=== PATIENT | female | born 1975 | race Caucasian/White ===

== ENCOUNTER 2017-12-15 16:41 | Emergency (ER) | payer BC ==
[~2017-12-15] VITALS: Ht 154.9 cm; Wt 178.3 kg
--- OUTSIDE RECORDS SUMMARY | 2017-12-15 16:44 | XMS REPORT | Clinical Summary ---
Author Author [employer] Organization [facility] Address Unknown Phone Unavailable Care Team Providers [employer] Name Role Phone Cyn Rao MD PCP Allergies Active Allergy Reactions Severity Noted Date Comments No Known Drug Allergies 03/11/2016 Current Medications Prescription Sig. Disp. Refills Start End Date Status Date XIIDRA 5 % dropperette 11/02/19 Active 17 buPROPion (WELLBUTRIN) 75 02/16/20 Active MG tablet 17 losartan-hydrochlorothiaz TK 1 T PO QD 3 05/19/20 Active darek (HYZAAR) 50-12.5 mg 17 per tablet ergocalciferol (VITAMIN TK 1 C PO Q WEEK 1 09/21/20 Active D2) 50,000 unit capsule 17 ipratropium (ATROVENT) 09/24/20 Active 0.03 % nasal spray 17 buPROPion (WELLBUTRIN) 09/17/20 04/15/20 Discontin 100 MG tablet 16 17 ued ergocalciferol (VITAMIN 04/10/20 08/02/20 Discontin D2) 50,000 unit capsule 17 17 ued Active Problems Problem Noted Date Low back pain 11/09/2016 Pain in both knees 11/09/2016 Amenorrhea 03/11/2016 Irritable bowel syndrome with diarrhea 03/11/2016 Bariatric surgery status 10/27/2011 Kidney stones 10/18/2008 Anxiety Arthritis GERD (gastroesophageal reflux disease) Depression Headache PCOS (polycystic ovarian syndrome) Hypothyroidism BMI 70 and over, adult Neuromuscular disorder Resolved Problems Problem Noted Date Resolved Date Anemia 09/27/2017 Encounters Date Type Specialty Care Team Description 09/27/2017 Office Visit Family Medicine Omaira Rao, Neuromuscular disorder (Primary Dx); Irritable bowel syndrome with diarrhea; PCOS (polycystic ovarian syndrome); Low back pain, unspecified back pain laterality, unspecified chronicity, with sciatica presence unspecified; Arthritis; Anemia, unspecified type; Other depression; BMI 70 and over, adult 08/03/2017 Telephone [facility] Medicine Earlene Rivers MA Visit for screening mammogram (Primary Dx) 08/02/2017 Office Visit [facility] Omaira Rico Neuromuscular disorder (Primary Dx); Low back pain, unspecified back pain laterality, unspecified chronicity, with sciatica presence unspecified; Pain in both knees, unspecified chronicity; Hypothyroidism, unspecified type; PCOS (polycystic ovarian syndrome); BMI 70 and over, adult; Bariatric surgery status 05/06/2017 Orders Only Internal Medicine Johana Duffy MD 04/22/2017 Telephone [facility] Omaira Rico MD 04/15/2017 Office Visit [facility] Omaira Rico, PCOS ( polycystic ovarian MD syndrome) (Primary Dx); Neuromuscular disorder; Arthritis; Gastroesophageal reflux disease without esophagitis; Low back pain, unspecified back pain laterality, unspecified chronicity, with sciatica presence unspecified 04/02/2017 Orders Only Internal Medicine Johana Duffy MD 03/08/2017 Office Visit [facility] Omaira Rico Neuromuscular disorder (Primary Dx); Low back pain, unspecified back pain laterality, unspecified chronicity, with sciatica presence unspecified; Pain in both knees, unspecified chronicity; Irritable bowel syndrome with diarrhea 01/06/2017 Telephone [facility] Omaira Rico MD 12/23/2016 Orders Only Family Medicine Johana Duffy MD after 12/14/2016 Immunizations Name Dates Previously Given Next Due DTaP 10/18/2007 Influenza (IM) 08/20/2011 Preservative Free Family History Medical History Relation Name Comments Cancer Father Tan Maguire Blood cancer and leukemia d 10/2016 Eric Heart disease Father Tan Maguire Eric Depression Mother Christine Hood Depression Sister Brielle Eric Nath Relation Name Status Comments Father Tan Maguire ANXIETY Eric Mother Christine OSTEOPOROSI Erwin Sister Brielle Eric Nath Social History Tobacco Use Types Packs/Day Years Used Date Never Smoker Smokeless Tobacco: Never Used Alcohol Use Drinks/Week oz/Week Comments No Sex Assigned at Date Recorded Not on file Last Filed Vital Signs Vital Sign Reading Time Taken Blood Pressure 149/87 09/27/2017 2:12 PM [employer] Pulse 95 09/27/2017 2:12 PM [employer] Temperature 36.8 C (98.3 F) 09/27/2017 2:12 PM [employer] Respiratory Rate - - Oxygen Saturation 96% 09/27/2017 2:12 PM [employer] Inhaled Oxygen - - Concentration Weight 179 kg (394 lb) 09/27/2017 2:12 PM [employer] Height 152.4 cm (5') 09/27/2017 2:12 PM [employer] Body Mass Index 76.95 09/27/2017 2:12 PM [employer] Plan of Treatment Date Type Specialty Care Team Description 12/30/2017 Office Visit Family Medicine PurdyOmaira Stein MD [id number] [place] [address] Health Maintenance Due Date Last Done Comments PAP SMEAR 1996 INFLUENZA VACCINE 05/18/2017 08/20/2011 Results * Obtain medical records (05/06/2017) Only the most recent of 2 results within the time period is included. * Consult to PT eval and treat (12/23/2016) after 12/14/2016 Insurance Payer Benefit Subscriber ID Type Phone Address Plan / Group BCBS BCBS xxxxxxxxxxxx PPO CHOICE PPO/[employer]
[2017-12-15 19:02] VITALS: BP 154/88
== END 2017-12-15 18:28 | disposition home or self-care (01) ==
LOC: FSED 16:41
DX: M75.52 Bursitis of left shoulder (principal); I10 Essential (primary) hypertension; I51.7 Cardiomegaly; J90 Pleural effusion, not elsewhere classified
CPT/HCPCS: 99283